=== PATIENT | female | born 1965 | race Caucasian/White ===

== ENCOUNTER 2021-10-27 10:37 | Observation (INO) | payer OTHER, SELFPAY ==
[2021-10-27] VITALS (11 sets, daily range): BP systolic 139–206; BP diastolic 75–111; PULSE 70–90; RESP 14–18; TEMP 36.3–37.3; O2SAT 77–99; BMI 40.7
--- NOTE | 2021-10-27 | GALL_PTH ---
PATIENT: PAULINE JUAREZ LOC: MS3 U#:[id number] AGE/SX: 56/F [place] [facility] [place]: Dr. Pelon Gordon MD : 1965 BED: 1 DIS: 10/28/2021 SPEC #: [id number] RECD: 10/28/21 09:52 STATUS: BERNARD REYang #: [id number] RICKIE: 10/27/21 00:[address]: Pelon Gordon DEPT: SURGICAL PATHOLOGY RECD BY: Dwight Davis ENTERED: 10/28/21 09:52 SP TYPE: FRANTZ MORRELL DR: Shruthi Morel Tissues: Gallbladder, NOS Procedures: Surgery Specimen Level III HEADER OPERATION: Laparoscopic cholecystectomy with IOC PRE-OP DIAGNOSIS: Acute calculous cholecystitis, acute cholelithiasis TISSUE SUBMITTED: Gallbladder MICROSCOPIC DIAGNOSIS Gallbladder, cholecystectomy: Acute and chronic cholecystitis with denudation of mucosa. Cholelithiasis. AM:alexis 10/29/2021 MICROSCOPIC DESCRIPTION Slides are reviewed. GROSS DESCRIPTION Received is one container labeled with the patient's name and designated gallbladder. The specimen consists of a gallbladder measuring 9.5 cm in length and up to 4.2 cm in diameter. The external surface is pink-shaw, smooth and glistening for the most part. Focally it is granular, hemorrhagic and contains cautery artifact. The gallbladder contains hemorrhagic bile and blood clots and multiple mulberry, yellow stones measuring in aggregate 3 x 2.5 x 1 cm and 0.5 to 1 cm in greatest dimension. The mucosa is congested and hemorrhagic. The gallbladder wall measures up to 0.5 cm in thickness. Destination Imagination Coordinator sections from the gallbladder and the cystic duct are submitted in one cassette. / SJ:alexis 10/28/2021 TC:2 CPT: 59308
--- NOTE | 2021-10-27 10:56 | EKG12_ITS ---
Test Reason : Blood Pressure : / mmHG Vent. Rate : 068 BPM Atrial Rate : 068 BPM P-R Int : 184 ms QRS Dur : 092 ms QT Int : 420 ms P-R-T Axes : 042 042 044 degrees QTc Int : 446 ms Normal sinus rhythm Normal ECG Confirmed by KINGA PANCHAL, KELSEY ([id number]), index editor GRANT REYNA ([id number]) on 10/28/2021 8:38:08 AM Referred By: Confirmed By:KELSEY DONATO MD
--- NOTE | 2021-10-27 10:56 | US_ITS ---
STUDY: ABDOMINAL ULTRASOUND - RIGHT UPPER QUADRANT REASON FOR VISIT: Female, 56 years old right upper quadrant pain. TECHNIQUE: Ultrasound evaluation of the right upper quadrant was performed with real-time and static noel-scale imaging. TECHNICAL QUALITY: Adequate. COMPARISON: None. FINDINGS: Liver: The liver is mildly enlarged and measures 8 point cm. There is increased echogenicity consistent with fatty infiltration. The bile ducts are within normal limits. There is hepatic color flow. The direction of portal flow is hepatopetal. There is no demonstrated mass lesion. Gallbladder: Normal distended gallbladder. The gallbladder wall measures 3 mm. There is a positive sonographic Gonzalez''s sign. There is no pericholecystic fluid. There are multiple echogenic structures within the gallbladder, consistent with multiple gallstones. Common Bile Duct (C.B.D.): The common bile duct measures 3.0 mm. Pancreas: There is diffuse atrophy of the pancreas due to overlying bowel gas. Right Kidney: Normal size of the right kidney. The right kidney measures 11.8 cm x 5.5 cm x 5.7 cm. Normal renal cortex. The right cortex measures 1.8 cm. There is no demonstrated renal mass or cyst. There is no right hydronephrosis. US/Gallbladder IMPRESSION: Fatty infiltration of the liver. Multiple gallstones. Electronically Signed: Noam Gomes MD at 12:04 EDT ,
--- NOTE | 2021-10-27 10:57 | EDS_ITS ---
HPI History of Present Illness Chief Complaint: Nausea/Vomiting Informant: patient and spouse/S.O. Narrative Narrative: 56-year-old female presenting to the emergency room with the chief complaint of abdominal pain and vomiting. Symptoms began abruptly approximately 2 hours ago. She had not yet eaten or drank anything. She has sudden onset of epigastric right upper quadrant pain with emesis. She notes she had a similar event last week that resolved shortly. In between episodes she was eating and drinking normally. No changes in bowel habits. notes that she does seem to have some indigestion at night but she currently does not take any medicines for that. She denies any black or bloody stools. She has not had any history of pancreatitis or bowel obstructions. No prior abdominal surgeries other than sections. [facility] Medical History (Updated 10/27/21 @ 12:[address] Oleksandr Whitney DO) Hypertension Home Medications propranolol ER 80 mg-hydrochlorothiazide 50 mg cap,extended release 1 cap PO DAILY 10/27/21 [History Last Taken Unknown] Allergy/AdvReac Type Severity Reaction Status Date / Time No Known Allergies Allergy Verified 10/27/21 10:39 Surgical History (Updated 10/27/21 @ 10:[address] Oleksandr Whitney DO) History of section Social History (Updated 10/27/21 @ 10:[address] Oleksandr Whitney DO) Smoking Status: Never smoker substance use type: does not use ROS ROS ED Constitutional Constitutional ED: Denies chills or weight loss Eyes Eyes: Denies change in vision or diplopia ENT ENT ED: Denies ear pain, rhinorrhea or sore throat Cardiovascular Cardiovascular: Denies chest pain, orthopnea, palpitations or racing heartbeat Respiratory/Chest Respiratory/Chest: Denies cough, dyspnea or orthopnea Gastrointestinal Gastrointestinal: Reports abdominal pain, nausea and vomiting; Denies diarrhea Genitourinary Genitourinary ED: Denies dysuria, hematuria or urinary frequency Musculoskeletal Musculoskeletal: Denies arthralgias or myalgias Integumentary Denies abscess or rash Neurologic Neurologic: Denies headache(s) or weakness Psychiatric Psychiatric: Denies anxiety, depression, suicidal ideation or suicidal thoughts Endocrine Endocrinology: Denies polydipsia, polyphagia or polyuria Allergic/Immunologic Allergic/Immunologic ED: Denies mouth swelling, tongue swelling or urticaria EXAM Physical Exam Const Vital Signs: 10/27/21 10:37 Temperature 97.4 F L Temperature Source Temporal Pulse Rate 70 Respiratory Rate 14 Blood Pressure 206/111 H Blood Pressure Mean 142 Pulse Ox 99 Oxygen Delivery Method Room Air Positive well nourished, well developed and obese General Appearance ED: well developed Nutritional Appearance: obese HEENT Reports normocephalic, head/scalp atraumatic and moist mucous membranes Eyes PERRL and EOMs intact bilaterally Neck no lymphadenopathy, supple and no JVD Resp normal respiratory effort and clear to auscultation bilaterally Cardio regular rate, regular rhythm and no murmurs GI Auscultation: normoactive bowel sounds Palpation: soft and tender epigastric and RUQ; Negative for guarding or rebound tenderness present Back/Spine no CVA tenderness and normal ROM Extremity normal to inspection General Extremety ED: Negative for edema General Extremity: Negative for edema Neuro oriented x3 and CN's II-XII intact bilaterally Sensorium / Orientation: alert Motor Exam: strength 5/5 throughout Psych mental status grossly normal Mood & Affect: Negative for depressed or tearful Skin no rashes or lesions noted and no wounds MDM MDM MDM Narrative Medical decision making narrative: White count is elevated 12.4. Glucose 138. Liver enzymes are normal lipase is 167. Patient received Zofran morphine and eventually Dilaudid. Zosyn was also administered. His gallbladder ultrasound is consistent with cholelithiasis. Gallbladder wall is 3 mm. Common bile duct is not dilated. Case was discussed with on-call surgeon Dr. Gordon who will be down to evaluate the patient Lab Data Attestation: I reviewed the patient's lab results. Labs: Laboratory Results - last 24 hr 10/27/21 10/27/21 11:00 11:00 WBC 12.4 H RBC 4.60 Hgb 14.6 Hct 42.8 MCV 93.0 MCH 31.7 MCHC 34.1 RDW Std Deviation 42.9 RDW Coeff of Tabitha 12.6 Plt Count 364 MPV 10.2 Immature Gran % (Auto) 0.400 Neut % (Auto) 74.4 H Lymph % (Auto) 17.9 L [place] % (Auto) 5.6 Eos % (Auto) 1.3 Baso % (Auto) 0.4 Absolute Neuts (auto) 9.2 H Absolute Lymphs (auto) 2.23 Nucleated RBC % 0 Sodium 142 Potassium 3.7 Chloride 105 Carbon Dioxide 28.0 Anion Gap 9 BUN 16 Creatinine 0.74 Estim Creat Clear Calc 82.55 Est GFR (MDRD) Af Amer 105 Est GFR (MDRD) Non-Af 87 BUN/Creatinine Ratio 21.7 H Glucose 138 H Calcium 9.2 Total Bilirubin 0.50 Direct Bilirubin 0.09 AST 16 ALT 21 Alkaline Phosphatase 93 Total Protein 7.7 Albumin 3.3 Globulin 4.4 H Lipase 167 Radiography Diagnostic Testing: Clinical Impression(s) from Imaging Studies Gallbladder Ultrasound 10/27/21 10:56 IMPRESSION: Fatty infiltration of the liver. Multiple gallstones. Electronically Signed: Noam Gomes MD at 12:04 EDT , EKG Initial EKG: Attestation: I personally reviewed and interpreted this EKG as follows: Discharge Plan Dx/Rx/DC Orders Clinical Impression: Acute calculous cholecystitis, Abdominal pain, Vomiting Disposition Disposition: Acute Care Hospital [facility]
[2021-10-27] MEDS: Morphine 4 MG/ML Syringe IV (11:04)
[2021-10-27] MEDS: Ondansetron 4 MG/2 ML Vial IV ×2 (11:04→12:42)
[2021-10-27 11:23] LABS: Absolute Lymphocyte Count 2.23 X10^3/uL (0.83-4.51); Absolute Neutrophil Count 9.2 X10^3/uL (2.0-7.7); Basophil# 0.05 X10^3/uL; Basophil% 0.4 % (0-1); Eosinophil# 0.16 X10^3/uL; Eosinophils% 1.3 % (0-5); Hematocrit 42.8 % (37-47); Hemoglobin 14.6 g/dL (12.0-15.0); Lymphocyte # 2.23 X10^3/ul (0.83-4.51); Lymphocyte % 17.9 % (19-41); Mean Corp Hgb Conc 34.1 g/dL (32-36); Mean Corpuscular Hgb 31.7 pg (27.0-32.0); Mean Platelet Vol. 10.2 fl (6.2-12.0); Monocyte% 5.6 % (0-10); NRBC Flagged by Analyzer 0 % (0-5); Neutrophil # 9.24 X10^3/uL (2.7-7.7); Neutrophil % 74.4 % (47-70); Platelet Count 364 K/mm3 (150-450); RBC Distribution Width CV 12.6 % (11.6-14.6); RBC Distribution Width SD 42.9 fl (35.1-43.9); White Blood Count 12.4 K/mm3 (4.4-11.0)
[2021-10-27 11:39] LABS: AST(SGOT) 16 U/L (15-37); Alanine Aminotransfer ALT/SGPT 21 U/L (13-56); Albumin, Serum 3.3 g/dL (3.2-5.0); Alkaline Phosphatase 93 U/L (45-117); Anion Gap 9 (5-15); BUN 16 mg/dL (7-18); BUN/Creat Ratio 21.7 RATIO (10-20); Bilirubin, Direct 0.09 mg/dL (0.00-0.30); Calcium,Total 9.2 mg/dL (8.5-10.1); Chloride 105 mmol/L (98-107); Creatinine, Serum 0.74 mg/dL (0.55-1.02); EST Glomerular Filtration Rate 87 mL/min (>60); Est Glom Filt Rate - Afr Amer 105 mL/min (>60); Estimated Creatinine Clearance 82.55 ml/min; Globulin 4.4 g/dL (2.2-4.2); Glucose 138 mg/dL (74-106); Lipase 167 U/L (73-393); Potassium 3.7 mmol/L (3.5-5.1); Protein, Total 7.7 g/dL (6.4-8.2); Sodium Level 142 mmol/L (136-145)
[2021-10-27] MEDS: HYDROmorphone 1 MG/ML Syringe IV (12:42)
[2021-10-27] MEDS: 0.9% Normal Saline 1,000 ML 200 ML IV (13:03)
--- NOTE | 2021-10-27 13:24 | PCM.HP.STD ---
HPI - General General Date of Admission: 10/27/21 Chief Complaint: Right upper quadrant pain HPI Narrative PAULINE JUAREZ, is a 56 F who presents to the emergency room with acute onset of epigastric right upper quadrant pain. She states that 1 week ago she had a very similar episode but it tended to resolve. This episode was very severe causing her to double over.She denies fever chills or sweats. She has had nausea and vomiting. She had a sip of water on her way to the emergency room. She states she had a bite of a sandwich earlier today. Her blood pressure on arrival was 206/111 but that has settled down to 181/97 after pain treatment. She is morbidly obese with a body weight of 260 pounds and a BMI of 40.7. Liver function tests were normal. White blood cell count slightly elevated to 12.4 with a hemoglobin 14.6 , hematocrit 42.8, platelet count of 364,000. A right upper quadrant ultrasound was obtained. Normal distended gallbladder. Gallbladder wall 3 mm. Positive Gonzalez sign. No fluid. Multiple structures consistent with multiple gallstones. Common bile duct 3 mm. The patient was given morphine with no relief. She then required Dilaudid which has eased her pain allowing her at least to stretch out. Previous surgical history includes C-sections x3. [facility] Medical History Hypertension Home Medications propranolol ER 80 mg-hydrochlorothiazide 50 mg cap,extended release 1 cap PO DAILY 10/27/21 [History Last Taken Unknown] Allergy/AdvReac Type Severity Reaction Status Date / Time No Known Allergies Allergy Verified 10/27/21 10:39 Surgical History History of section Social History (Updated 10/27/21 @ 10:[address] Oleksandr Whitney, DO) Smoking Status: Never smoker substance use type: does not use ROS ROS Narrative Right upper quadrant and epigastric pain with nausea and vomiting Constitutional Constitutional: Reports systems reviewed and no addt'l complaints, except as documented ENT HEENT: Reports systems reviewed and no addt'l complaints, except as documented Cardiovascular Cardiovascular: Reports systems reviewed and no addt'l complaints, except as documented Respiratory/Chest Respiratory/Chest: Reports systems reviewed and no addt'l complaints, except as documented Gastrointestinal Gastrointestinal: Reports other Details: No acute change of bowel habit. Nausea and vomiting noted Genitourinary Genitourinary: Reports systems reviewed and no addt'l complaints, except as documented Musculoskeletal Musculoskeletal: Reports other Details: No history of DVT Varicose veins noted. No history of support hose use Neurologic Neurologic: Reports systems reviewed and no addt'l complaints, except as documented Vital Signs Vital Signs Vital Signs: 10/27/21 10:37 10/27/21 13:03 10/27/21 13:05 Temperature 97.4 F L 97.8 F 97.8 F Temperature Source Temporal Oral Oral Pulse Rate 70 72 72 Respiratory Rate 14 14 14 Blood Pressure 206/111 H 181/97 H 181/97 H Blood Pressure Mean 142 125 125 Blood Pressure Source Monitor Blood Pressure Position Semi-Fowlers Blood Pressure Location Right Arm Pulse Ox 99 98 98 Oxygen Delivery Method Room Air Room Air Room Air Weight Weight: 260 lb Body Mass Index (BMI) 40.7 Physical Exam Const alert and oriented x3 Constitutional Narrative: Patient is uncomfortable, holding her epigastrium, she is able to roll supine for examination General Appearance: cooperative Nutritional Appearance: morbidly obese HEENT normocephalic Head and Scalp: normal to inspection Eyes PERRL Neck full ROM Resp Resp Narrative: Splinting with deep respiration, clear to auscultation Cardio regular rate and regular rhythm GI normal to inspection, nondistended, normoactive bowel sounds Back/Spine no CVA tenderness Extremity Extremity Narrative: Multiple bilateral extremity varicose veins, soft, nontender Skin no rashes or lesions noted Neuro oriented x3 Results Lab / Micro Data Result Diagrams: 10/27/21 11:00 10/27/21 11:00 Labs: Laboratory Results - last 24 hr 10/27/21 11:00: WBC 12.4 H, RBC 4.60, Hgb 14.6, Hct 42.8, MCV 93.0, MCH 31.7, MCHC 34.1, RDW Std Deviation 42.9, RDW Coeff of Tabitha 12.6, Plt Count 364, MPV 10.2, Immature Gran % (Auto) 0.400, Neut % (Auto) 74.4 H, Lymph % (Auto) 17.9 L, [place] % (Auto) 5.6, Eos % (Auto) 1.3, Baso % (Auto) 0.4, Absolute Neuts (auto) 9.2 H, Absolute Lymphs (auto) 2.23, Nucleated RBC % 0 10/27/21 11:00: Sodium 142, Potassium 3.7, Chloride 105, Carbon Dioxide 28.0, Anion Gap 9, BUN 16, Creatinine 0.74, Estim Creat Clear Calc 82.55, Est GFR (MDRD) Af Amer 105, Est GFR (MDRD) Non-Af 87, BUN/Creatinine Ratio 21.7 H, Glucose 138 H, Calcium 9.2, Total Bilirubin 0.50, Direct Bilirubin 0.09, AST 16, ALT 21, Alkaline Phosphatase 93, Total Protein 7.7, Albumin 3.3, Globulin 4.4 H, Lipase 167 Radiology Impression Gallbladder Ultrasound 10/27/21 10:56 IMPRESSION: Fatty infiltration of the liver. Multiple gallstones. Electronically Signed: Noam Gomes MD at 12:04 EDT , Assessment & Plan Assessment/Plan (1) Acute calculous cholecystitis: PLAN: Patient's findings are quite consistent with acute cholecystitis cholelithiasis. I recommend to her laparoscopic cholecystectomy with selective cholangiography and with present we have discussed technique, benefit, risk, alternatives. She has had an opportunity to ask and have questions answered. The patient is presenting acutely and I believe direct operation would facilitate her management. Morphine did not ameliorate her pain. She required upgrading to Dilaudid and even now she is not pain-free. She has had an opportunity to ask and have questions answered. She desires to proceed at earliest convenience. Pelon Gordon M.D., F.A.C.S.
[2021-10-27] MEDS: hydrALAZINE 20 MG/ML Vial 10 MG IV (13:50)
[2021-10-27] MEDS: Bupivacaine 0.25% 30 ML Vial (16:10)
--- NOTE | 2021-10-27 16:10 | RAD_ITS ---
STUDY: INTRAOPERATIVE CHOLANGIOGRAM. REASON FOR EXAM: Female, 56 years old. LAP MAURI FLUOROSCOPY TIME (if supplied): ( 24.9 seconds ) minutes/seconds. A cine loop of 51 images was submitted. TECHNIQUE: An intraoperative cholangiogram was performed by the surgeon. Imaging was submitted. COMPARISON: None. FINDINGS: The intrahepatic biliary ducts are unremarkable. The common bile duct is not dilated. No intraluminal filling defect is seen. There is free flow of contrast into the duodenum. RAD/Cholangiogram/ O R,Initial IMPRESSION: Unremarkable intraoperative cholangiogram. Electronically Signed: Noam Gomes MD at 8:19 EDT ,
--- NOTE | 2021-10-27 17:21 | PCM.OPRPT ---
Problems Associated Problem List Diagnoses (1) Acute calculous cholecystitis: Report of Operation Date of Procedure: 10/27/21 Pre-Operative Diagnosis: Acute cholecystitis/cholelithiasis Post-Operative Diagnosis: Same Surgery/Procedure Performed:: Laparoscopic cholecystectomy with cholangiograms Description of Surgical Findings:: Terrence not fxning Pt to OR, Zosyn IV, time out, general anesthesia given. Abdomen prepped and draped. 0.25% marcaine as local--total of 30cc. Vertical incision superior aspect of umbilicus--no attempt to fix umbilical hernia.Holding sutures, then veries needle, insuflation to 12 dusty, 10mm trocar, no injury. GB tightly inflamed with omental adhesions. Needle trocar asperated and rat tooth grasper. Tedious blunt, aqua dissection until cystic duct and ant/post cystic arteries identified. Hemolock clip on cystic duct then incision and cholangiograms with good distal flow and proximal filling. Two clips on cystic duct. Arteries secured. GB tediously dissected free from liver bed--significant inflammation and cautery used and clips where indicated. Gallbladder placed in retreival bag, right upper quadrant irrigated. Fibrular placed in liver bed and 15Fr round AYDEN to subhepatic space and secured with 3.0 nylon. GB removed via umbilicus and fascia closed with running 0 vicryl. Skin edges subdermal with 4.0 monocryl. Seristrips,telfa/opcite dressings Specimen: Gallbladder, Drains: 15 round AYDEN, Est. blood loss 50cc. To RR satis No apparent complication Surgeon: Pelon Gordon Type of Anesthesia: General and Local Anesthesiologist: Odell Velez
[2021-10-27] MEDS: 0.9% Normal Saline 1,000 ML 100 ML IV (19:02)
[2021-10-27] MEDS: oxyCODONE 5 MG Tablet PO (20:44)
[2021-10-28] MEDS: oxyCODONE 5 MG Tablet PO ×4 (00:51→13:35)
[2021-10-28] MEDS: 0.9% Normal Saline 1,000 ML 100 ML IV (05:03)
--- NOTE | 2021-10-28 06:04 | PCM.PN.SRG ---
Subjective Subjective Patient notes a pain level of 4. She has been able to get up out of bed. She is still on nasal prong oxygen. She has been tolerating clear liquids. Denies any real nausea. Objective Data Objective Data Vital Signs: Vital Signs Temp Pulse Resp BP Pulse Ox O2 Del Method O2 Flow Rate 98.1 F 85 16 149/78 H 95 Nasal Cannula 2 10/27/21 22:40 10/27/21 22:40 10/27/21 22:40 10/27/21 22:40 10/27/21 22:40 10/27/21 22:40 10/27/21 22:40 Oxygen Flow Rate (L/min) 2 Oxygen Delivery Method Nasal Cannula Weight: 260 lb Body Mass Index (BMI) 40.7 Intake & Output: Intake and Output for Last 24 Hours 10/26/21 10/27/21 10/28/21 23:59 23:59 23:59 Intake Total 1100 / 1100 1050 / 1050 Output Total 1974 / 1974 Balance 1100 / 130 -925 / -925 Lab / Micro Data Result Diagrams: 10/27/21 11:00 10/27/21 11:00 Labs: Laboratory Results - last 24 hr 10/27/21 11:00: WBC 12.4 H, RBC 4.60, Hgb 14.6, Hct 42.8, MCV 93.0, MCH 31.7, MCHC 34.1, RDW Std Deviation 42.9, RDW Coeff of Tabitha 12.6, Plt Count 364, MPV 10.2, Immature Gran % (Auto) 0.400, Neut % (Auto) 74.4 H, Lymph % (Auto) 17.9 L, [place] % (Auto) 5.6, Eos % (Auto) 1.3, Baso % (Auto) 0.4, Absolute Neuts (auto) 9.2 H, Absolute Lymphs (auto) 2.23, Nucleated RBC % 0 10/27/21 11:00: Sodium 142, Potassium 3.7, Chloride 105, Carbon Dioxide 28.0, Anion Gap 9, BUN 16, Creatinine 0.74, Estim Creat Clear Calc 82.55, Est GFR (MDRD) Af Amer 105, Est GFR (MDRD) Non-Af 87, BUN/Creatinine Ratio 21.7 H, Glucose 138 H, Calcium 9.2, Total Bilirubin 0.50, Direct Bilirubin 0.09, AST 16, ALT 21, Alkaline Phosphatase 93, Total Protein 7.7, Albumin 3.3, Globulin 4.4 H, Lipase 167 Radiography Diagnostic Testing: Radiology Impression Gallbladder Ultrasound 10/27/21 10:56 IMPRESSION: Fatty infiltration of the liver. Multiple gallstones. Electronically Signed: Noam Gomes MD at 12:04 EDT , Physical Exam GI GI Narrative: Abdomen is soft, overweight, AYDEN drain minimal output Assessment & Plan Assessment/Plan (1) Acute calculous cholecystitis: PLAN: AYDEN drain was removed. Sterile dressings applied. She was given activity wound care instructions Will need to mobilize the patient and encourage incentive spirometry. Anticipate discharge later today. Pelon Gordon M.D., F.A.C.S.
--- NOTE | 2021-10-28 06:06 | DCINST_ITS ---
Discharge Instructions Procedure General Surgery Diet Discharge Diet: Light diet - advance as tolerated (if you have questions about your diet instructions, please talk to you doctor.) Activity Discharge Activity: May Not Drive (for 3-5 days or while taking narcotic pain medicine.) May shower in (days): 1 Lifting Restrictions: 10 pounds Dressing / Incision Call your doctor if your incision/area has: Continuous Slow Oozing, Sudden Increased Bleeding, Increased Pain/ Swelling, Increased Redness and Foul Smelling Discharge Call your doctor if you observe: Fever of 101 or Higher Suture Line Care: Avoid Pulling/Pushing and Avoid Pinching/Bending Additional Dressing/Incision Instructions:: Change or remove plastic dressings in 3 days. Leave steri-strips in place for 1 week. You may remove your drain dressing tomorrow morning shower over the site and then reapply a Band-Aid or dry dressing as needed Follow Up Care Please Follow Up With: Pelon Gordon MD When: Call [phone] to make an appointment to be seen in about 10 days. Test Results: Test results from this visit will be discussed in further detail at your follow- up appointment, if applicable. Discharge Plan Admission Admit Date/Time: 10/27/21 17:25 Attending Provider: Pelon Gordon Primary Care Provider: Shruthi Morel Discharge Orders/Prescriptions Prescriptions: No Action propranolol-hydrochlorothiazid 80-50 mg Capsule, Extended Release 1 cap PO DAILY Referrals / Follow Up: Shruthi Morel [Primary Care Provider] -
[2021-10-28 06:40] VITALS: BP 135/65; PULSE 79; RESP 16; TEMP 37.1; O2SAT 94
[2021-10-28 07:15] VITALS: O2SAT 97
[2021-10-28 09:17] VITALS: BP 118/62; PULSE 66; RESP 18; TEMP 36.8; O2SAT 95
[2021-10-28] MEDS: Acetaminophen 325 MG Tablet 650 MG PO (09:25)
[2021-10-28] MEDS: hydroCHLOROthiazide 25 MG Tablet 50 MG PO (11:30)
[2021-10-28] MEDS: Propranolol LA 80 MG Capsule PO (11:32)
[2021-10-28 13:37] VITALS: BP 112/59; PULSE 72; RESP 17; TEMP 36.8; O2SAT 92
== END 2021-10-28 14:00 | disposition home or self-care (01) ==
LOC: ED 12:39 → MS3 14:02
PROVIDERS: Admitting Provider Surgery; Emergency Provider Emergency Medicine; PCP Family Medicine; Visit Provider Surgery
PROC: (CPT 47610; principal; 2021-10-27 15:30)
DX: K81.2 Acute cholecystitis with chronic cholecystitis (principal); I10 Essential (primary) hypertension; Z79.899 Other long term (current) drug therapy
CPT/HCPCS: 47563; 00790; 74300; 76000; 76705; 80048; 80076; 83690; 85025; 88304; 93005; 96361; 96365; 96366; 96375; 96376; 99218; 99284; J7030; J7040; G0378; J2405